=== PATIENT | female | born 1980 | race African-American/Black ===

== ENCOUNTER 2016-06-05 14:50 | Emergency (ER) | payer MEDICAID, OTHER ==
[2016-06-05 14:52] VITALS: BP 153/77; PULSE 88; RESP 12; TEMP 98; O2SAT 98
[2016-06-05] MEDS ORDERED: ONDANSETRON HCL 4 MG/2 ML VIAL IV PUSH ONE (16:45)
[2016-06-05] MEDS ORDERED: KETOROLAC TROMETHAMINE 30 MG/ML (IVP) VIAL IV PUSH ONE (16:45)
--- NOTE | 2016-06-05 16:58 | PD ---
HPI Chief Complaint: Abdominal Pain Time Seen by Provider: 16:54 Travel History International Travel<30 days: No Contact w/Intl Traveler<30days: No Traveled to known affect area: No History of Present Illness HPI Patient is a 36-year-old female presenting to emergency from for evaluation of left lower quadrant abdominal pain. She states the pain started 3 days ago, it' s intermittent, crampy in nature. She reports vomiting early this morning with a soft bowel movement following that. She has had no other nausea or vomiting. She further denies any fever, chills, shortness of breath, chest pain. Patient states that she was told she had an issue with her ovary by her primary doctor a few years ago, she was referred to a bariatric surgeon but never followed up. Patient's last menstrual cycle was on May 23. She further denies any vaginal discharge, recent sexual activity, or new sexual partners. PFSH Past Medical History Asthma: Yes Cancer: No Cardiovascular Problems: No Diabetes: No Diminished Hearing: No Endocrine: No Genitourinary: No Hepatitis: No Hiatal Hernia: No Immune Disorder: No Musculoskeletal: Yes (BROKEN RT HAND) Neurologic: No Psychiatric: No Reproductive: Yes ( IN MAY [birth year]) Respiratory: Yes (asthma) Thyroid Disease: No ?: Not LMP: 05/23/16 : 2 Para: 0 Miscarriage: 1 : 1 Ectopic : No Ovarian Cysts: No Past Surgical History AICD: No Section: Yes (x1) Gynecologic Surgery: Yes () Joint Replacement: No Pacemaker: No Social History Alcohol Use: Yes (occ) Tobacco Use: Yes (<ppd) Substance Use: No Allergies-Medications (Allergen,Severity, Reaction): Coded Allergies: No Known Allergies (Verified , 06/05/16) Reported Meds & Prescriptions Reported Meds & Active Scripts Active No Active Prescriptions or Reported Medications Review of Systems Except as stated in HPI: all other systems reviewed are Neg Gastrointestinal: Positive: Nausea, Vomiting, Abdominal Pain Physical Exam Narrative GENERAL: Well-developed, well-nourished, alert female. Resting comfortably in no acute distress. SKIN: Warm and dry. HEAD: Atraumatic. Normocephalic. EYES: Pupils equal and round. No scleral icterus. No injection or drainage. ENT: No nasal bleeding or discharge. Mucous membranes pink and moist. NECK: Trachea midline. No JVD. CARDIOVASCULAR: Regular rate and rhythm. No murmur appreciated. RESPIRATORY: No accessory muscle use. Clear to auscultation. Breath sounds equal bilaterally. GASTROINTESTINAL: Abdomen soft, no clubbing. No cyanosis. No edema. No rebound, no guarding. Mildly tender in left lower quadrant with deep palpation. Positive bowel sounds. NEUROLOGICAL: Awake and alert. No obvious cranial nerve deficits. Motor grossly within normal limits. Normal speech. PSYCHIATRIC: Appropriate mood and affect; insight and judgment normal. Data Data Last Documented VS Vital Signs Date Time Temp Pulse Resp B/P Pulse Ox O2 Delivery O2 Flow Rate FiO2 06/05/16 14:52 98.0 88 12 153/77 98 Room Air Orders Complete Blood Count With Diff (06/05/16 16:44) Basic Metabolic Panel (Bmp) (06/05/16 16:44) Urinalysis - C+S If Indicated (06/05/16 16:44) Ed Urine Pregnancytest Poc (06/05/16 16:44) Iv Access Insert/Monitor (06/05/16 16:45) Ketorolac Inj (Toradol Inj) (06/05/16 16:45) Ondansetron Inj (Zofran Inj) (06/05/16 16:45) Labs Laboratory Tests Test 06/05/16 06/05/16 17:30 17:35 Urine Color YELLOW Urine Turbidity HAZY Urine pH 6.5 Urine Specific [place] 1.029 Urine Protein TRACE mg/dL Urine Glucose (UA) NEG mg/dL Urine Ketones NEG mg/dL Urine Occult Blood NEG Urine Nitrite NEG Urine Bilirubin NEG Urine Urobilinogen 2.0 MG/DL Urine Leukocyte Esterase SMALL Urine WBC 1 /hpf Urine Squamous Epithelial 21 /hpf Cells Urine Mucus FEW /lpf Microscopic Urinalysis Comment CULT NOT INDICATED White Blood Count 10.4 TH/MM3 Red Blood Count 4.28 MIL/MM3 Hemoglobin 11.3 GM/DL Hematocrit 34.9 % Mean Corpuscular Volume 81.7 FL Mean Corpuscular Hemoglobin 26.5 PG Mean Corpuscular Hemoglobin 32.5 % Concent Red Cell Distribution Width 16.3 % Platelet Count 267 TH/MM3 Mean Platelet Volume 9.3 FL Neutrophils (%) (Auto) 50.8 % Lymphocytes (%) (Auto) 37.7 % Monocytes (%) (Auto) 5.8 % Eosinophils (%) (Auto) 5.3 % Basophils (%) (Auto) 0.4 % Neutrophils # (Auto) 5.3 TH/MM3 Lymphocytes # (Auto) 3.9 TH/MM3 Monocytes # (Auto) 0.6 TH/MM3 Eosinophils # (Auto) 0.6 TH/MM3 Basophils # (Auto) 0.0 TH/MM3 CBC Comment DIFF FINAL Differential Comment Sodium Level 139 MEQ/L Potassium Level 3.8 MEQ/L Chloride Level 106 MEQ/L Carbon Dioxide Level 25.9 MEQ/L Anion Gap 7 MEQ/L Blood Urea Nitrogen 10 MG/DL Creatinine 0.71 MG/DL Estimat Glomerular Filtration 113 ML/MIN Rate Random Glucose 84 MG/DL Calcium Level 8.6 MG/DL MDM Medical Decision Making Medical Screen Exam Complete: Yes Emergency Medical Condition: Yes Interpretation(s) Vital Signs Date Time Temp Pulse Resp B/P Pulse Ox O2 Delivery O2 Flow Rate FiO2 06/05/16 14:52 98.0 88 12 153/77 98 Room Air Differential Diagnosis Ovarian cyst versus diverticulitis versus muscle strain versus ovarian torsion versus other Narrative Course Patient is a 36-year-old female presenting to the emergency room for evaluation of left lower quadrant abdominal pain that started 3 days ago, it is intermittent, worse with walking. Abdominal exam was unimpressive. There is no rebound, no guarding. Patient requested remote control for the TV. Labs ordered and pending. Labs reviewed and are unremarkable. Urinalysis is negative of urinary tract infection. Urine is negative. Patient has had no further vomiting in the emergency department. She is encouraged follow-up with her primary care provider, additionally she was encouraged follow-up with gynecology as previously advised. Patient is encouraged to return to emergency department for any new or worsening symptoms. Patient verbalized understanding of instructions. Patient stable for discharge. Plan of care discussed with my attending physician who is in agreement. Diagnosis Primary Impression: Intermittent left lower quadrant abdominal pain Additional Impression: Nausea and vomiting Qualified Code: R11.2 - Non-intractable vomiting with nausea, unspecified vomiting type Referrals: [facility] Patient Instructions: Abdominal Pain (ED), Acute Nausea and Vomiting (ED), General Instructions, Ovarian Cyst (DC) Additional Instructions: Follow-up with gynecology at the [facility] Follow-up with your primary doctor Return to emergency department and medially for any new or worsening symptoms Take medications as directed Maintain adequate fluid intake Med/Other Pt SpecificInfo: Prescription(s) given Scripts Ondansetron Odt (Zofran Odt)4 Mg Tab4 Mg SL Q6HR PRN (Nausea/Vomiting) 5 Days Ref 0 Prov:Arianna Augustine 06/05/16 Disposition: 01 DISCHARGE HOME Condition: Stable Arianna Augustine Jun 05, 2016 16:58
[2016-06-05 17:15] VITALS: BP 145/72; PULSE 85; RESP 18; O2SAT 99
[2016-06-05 17:58] LABS: AUTOMATED NEUTROPHIL # 5.3 TH/MM3 (1.8-7.7); BASOPHIL % 0.4 % (0.0-2.0); EOSINOPHIL # 0.6 TH/MM3 (0-0.4); EOSINOPHIL % 5.3 % (0.0-4.0); HEMATOCRIT 34.9 % (35.0-46.0); HEMO FLAGS DIFF FINAL; LYMPH % 37.7 % (9.0-44.0); LYMPHOCYTE # 3.9 TH/MM3 (1.0-4.8); MEAN CELL VOLUME 81.7 FL (80.0-100.0); MEAN CORPUSCULAR HEMOGLOBIN 26.5 PG (27.0-34.0); MEAN CORPUSCULAR HGB CONC 32.5 % (32.0-36.0); MONO % 5.8 % (0.0-8.0); NEUT % 50.8 % (16.0-70.0); PLATELET COUNT 267 TH/MM3 (150-450); RED BLOOD COUNT 4.28 MIL/MM3 (4.00-5.30); RED CELL DISTRIBUTION WIDTH 16.3 % (11.6-17.2); WHITE BLOOD COUNT 10.4 TH/MM3 (4.0-11.0)
[2016-06-05 18:04] LABS: BLOOD, URINE NEG (NEG); COMMENT (UR) CULT NOT INDICATED; CULTURE IF INDICATED CULT NOT INDICATED; GLUCOSE,URINE NEG (NEG); KETONE, URINE NEG (NEG); MUCUS URINE FEW /lpf (OCC); NITRITE,URINE NEG (NEG); PH, URINE 6.5 (5.0-8.5); SQUAMOUS EPITHELIAL CELL URINE 21 /hpf (0-5); URINE COLOR YELLOW (YELLW/STRAW)
[2016-06-05 18:22] LABS: BICARBONATE 25.9 MEQ/L (21.0-32.0); POTASSIUM 3.8 MEQ/L (3.5-5.1)
[2016-06-05] MEDS ORDERED: ZOFR4TAB3 SL (18:25)
[2016-06-05 18:49] VITALS: BP 152/71
== END 2016-06-05 18:54 | disposition home or self-care (01) ==
LOC: NEPC 14:50
DX: R10.32 Left lower quadrant pain (principal); R11.2 Nausea with vomiting, unspecified
CPT/HCPCS: 80048; 81001; 84703; 85025; 96374; 96375; 99284; J1885; J2405

== ENCOUNTER 2017-04-02 16:52 | Emergency (ER) | payer MEDICAID ==
[~2017-04-02 16:52] MED LIST: ZOFR4TAB3 SL
[2017-04-02 16:55] VITALS: BP 143/84; PULSE 78; RESP 16; TEMP 98.1; O2SAT 99
--- NOTE | 2017-04-02 18:50 | PD ---
HPI Chief Complaint: Musculoskeletal Complaint Time Seen by Provider: 18:27 Travel History International Travel<30 days: No Contact w/Intl Traveler<30days: No Traveled to known affect area: No History of Present Illness HPI 37 YO F presents to the ED for evaluation of PFSH Past Medical History Asthma: Yes Cancer: No Cardiovascular Problems: No Diabetes: No Diminished Hearing: No Endocrine: No Genitourinary: No Hepatitis: No Hiatal Hernia: No Hypertension: Yes Immune Disorder: No Musculoskeletal: Yes (BROKEN RT HAND) Neurologic: No Psychiatric: No Reproductive: Yes ( IN MAY [birth year]) Respiratory: Yes (asthma) Thyroid Disease: No ?: Not LMP: 03/12/17 : 2 Para: 0 Miscarriage: 1 : 1 Ectopic : No Ovarian Cysts: No Past Surgical History AICD: No Section: Yes (x1) Gynecologic Surgery: Yes () Joint Replacement: No Pacemaker: No Other Surgery: Yes Social History Alcohol Use: Yes (occ) Tobacco Use: Yes Substance Use: No Allergies-Medications (Allergen,Severity, Reaction): Coded Allergies: No Known Allergies (Verified , 06/06/16) Reported Meds & Prescriptions Reported Meds & Active Scripts Active Zofran Odt (Ondansetron Odt) 4 Mg Tab 4 Mg SL Q6HR PRN 5 Days Data Data Last Documented VS Vital Signs Date Time Temp Pulse Resp B/P (MAP) Pulse Ox O2 Delivery O2 Flow Rate FiO2 04/02/17 16:55 98.1 78 16 143/84 (103) 99 Nemo Ahumada Apr 02, 2017 18:50
== END 2017-04-02 18:56 | disposition left against medical advice (07) ==
LOC: NEPK 16:52
DX: R20.0 Anesthesia of skin (principal); J45.909 Unspecified asthma, uncomplicated; I10 Essential (primary) hypertension; Z53.21 Procedure and treatment not carried out due to patient leaving prior to being seen by health care provider
CPT/HCPCS: 99281

== ENCOUNTER 2017-07-10 23:19 | Emergency (ER) | payer MEDICAID ==
[~2017-07-10] VITALS: Ht 165.1 cm; Wt 75.0 kg
[2017-07-11 00:06] VITALS: BP 143/90; PULSE 82; RESP 16; TEMP 98.4; O2SAT 100
[2017-07-11] MEDS ORDERED: SODIUM CHLORIDE 0.9% FLUSH 10 ML FLUSH IV FLUSH PRN (01:00)
--- NOTE | 2017-07-11 01:15 | PD ---
HPI . Abdominal pain Chief Complaint: Abdominal Pain Time Seen by Provider: 00:41 Travel History International Travel<30 days: No Contact w/Intl Traveler<30days: No Traveled to known affect area: No History of Present Illness HPI This patient presents with a chief complaint of abdominal pain. She describes left-sided abdominal pain for the last 2 days which she rates 10/10. She states that it is worse tonight. She denies any associated nausea or vomiting. She states that she had diarrhea yesterday but that it has now completely resolved. She denies any urinary tract or [employer] symptoms. There are no modifying factors. PFSH Past Medical History Asthma: Yes Cancer: No Cardiovascular Problems: No Diabetes: No Diminished Hearing: No Endocrine: No Gastrointestinal Disorders: No Genitourinary: No Hepatitis: No Hiatal Hernia: No Hypertension: Yes Immune Disorder: No Musculoskeletal: Yes (BROKEN RT HAND) Neurologic: No Psychiatric: No Reproductive: Yes ( IN [birth year]) Respiratory: Yes (asthma) Immunizations Current: Yes Thyroid Disease: No Tetanus Vaccination: > 5 Years Influenza Vaccination: No ?: Unknown LMP: 06/11/17 : 2 Para: 0 Miscarriage: 1 : 1 Ectopic : No Ovarian Cysts: No Past Surgical History AICD: No Section: Yes (x1) Gynecologic Surgery: Yes () Joint Replacement: No Pacemaker: No Other Surgery: Yes Social History Alcohol Use: Yes (occ) Tobacco Use: Yes Substance Use: No Allergies-Medications (Allergen,Severity, Reaction): Coded Allergies: No Known Allergies (Verified Adverse Reaction, Unknown, 07/11/17) Reported Meds & Prescriptions Reported Meds & Active Scripts Active Zofran Odt (Ondansetron Odt) 4 Mg Tab 4 Mg SL Q6HR PRN 5 Days Review of Systems Except as stated in HPI: all other systems reviewed are Neg General / Constitutional: No: Fever, Chills Gastrointestinal: Positive: Diarrhea (Diarrhea yesterday which has now completely resolved), Abdominal Pain, No: Nausea, Vomiting Genitourinary: No: Urgency, Frequency, Dysuria, Dyspareunia, Discharge, Vaginal Bleeding Physical Exam Narrative GENERAL: Awake and alert and in no acute distress. SKIN: warm/dry. HEAD: Normocephalic. Atraumatic. EYES: Pupils equal and round. No scleral icterus. No injection or drainage. ENT: No nasal bleeding or discharge. Mucous membranes pink and moist. NECK: Trachea midline. Full range of motion without pain.. CARDIOVASCULAR: Regular rate and rhythm. Heart sounds normal. RESPIRATORY: No accessory muscle use. Clear to auscultation. Breath sounds equal bilaterally. GASTROINTESTINAL: Abdomen soft. Diffuse tenderness with no guarding or rebound.. Bowel sounds present. Nondistended. MUSCULOSKELETAL: No obvious deformities. NEUROLOGICAL: Awake and alert. No obvious cranial nerve deficits. Motor grossly within normal limits. Normal speech. PSYCHIATRIC: Appropriate mood and affect; insight and judgment normal. Data Data Last Documented VS Vital Signs Date Time Temp Pulse Resp B/P (MAP) Pulse Ox O2 Delivery O2 Flow Rate FiO2 07/11/17 01:17 77 18 163/91 (115) 100 Room Air 07/11/17 00:06 98.4 Orders Orders Complete Blood Count With Diff (07/11/17 00:47) Comprehensive Metabolic Panel (07/11/17 00:47) Lipase (07/11/17 00:47) Urinalysis - C+S If Indicated (07/11/17 00:47) Iv Access Insert/Monitor (07/11/17 00:47) Ecg Monitoring (07/11/17 00:47) Oximetry (07/11/17 00:47) Sodium Chloride 0.9% Flush (Ns Flush) (07/11/17 01:00) Ed Urine Pregnancytest Poc (07/11/17 00:47) Labs Laboratory Tests Test 07/11/17 01:10 White Blood Count 9.8 TH/MM3 Red Blood Count 4.54 MIL/MM3 Hemoglobin 11.3 GM/DL Hematocrit 35.0 % Mean Corpuscular Volume 77.0 FL Mean Corpuscular Hemoglobin 24.8 PG Mean Corpuscular Hemoglobin Concent 32.2 % Red Cell Distribution Width 16.4 % Platelet Count 302 TH/MM3 Mean Platelet Volume 9.0 FL Neutrophils (%) (Auto) 48.1 % Lymphocytes (%) (Auto) 40.8 % Monocytes (%) (Auto) 6.6 % Eosinophils (%) (Auto) 4.2 % Basophils (%) (Auto) 0.3 % Neutrophils # (Auto) 4.7 TH/MM3 Lymphocytes # (Auto) 4.0 TH/MM3 Monocytes # (Auto) 0.6 TH/MM3 Eosinophils # (Auto) 0.4 TH/MM3 Basophils # (Auto) 0.0 TH/MM3 CBC Comment DIFF FINAL Differential Comment Urine Color YELLOW Urine Turbidity HAZY Urine pH 7.0 Urine Specific [place] 1.024 Urine Protein NEG mg/dL Urine Glucose (UA) NEG mg/dL Urine Ketones NEG mg/dL Urine Occult Blood NEG Urine Nitrite NEG Urine Bilirubin NEG Urine Urobilinogen LESS THAN 2.0 MG/DL Urine Leukocyte Esterase NEG Urine RBC LESS THAN 1 /hpf Urine WBC 1 /hpf Urine Squamous Epithelial Cells 8 /hpf Urine Mucus FEW /lpf Microscopic Urinalysis Comment CULT NOT INDICATED Blood Urea Nitrogen 9 MG/DL Creatinine 0.72 MG/DL Random Glucose 81 MG/DL Total Protein 8.2 GM/DL Albumin 4.0 GM/DL Calcium Level 8.6 MG/DL Alkaline Phosphatase 74 U/L Aspartate Amino Transf (AST/SGOT) 14 U/L Alanine Aminotransferase (ALT/SGPT) 17 U/L Total Bilirubin 0.2 MG/DL Sodium Level 142 MEQ/L Potassium Level 3.6 MEQ/L Chloride Level 109 MEQ/L Carbon Dioxide Level 27.1 MEQ/L Anion Gap 6 MEQ/L Estimat Glomerular Filtration Rate 111 ML/MIN Lipase 275 U/L [facility] Medical Decision Making Medical Screen Exam Complete: Yes Emergency Medical Condition: Yes Medical Record Reviewed: Yes (This patient has been seen here before with recurrent, intermittent left lower quadrant abdominal pain.) Differential Diagnosis Differential diagnosis of abdominal pain includes but is not limited to gastritis, pancreatitis, hepatitis, gastroenteritis, constipation, urinary retention, peptic ulcer disease, diverticulitis or appendicitis Narrative Course This patient presents with abdominal pain. She has some diffuse abdominal tenderness but no guarding or rebound. Her vital signs are normal. Her only associated symptom is diarrhea yesterday which is now completely resolved. CBC & BMP Diagram 07/11/17 01:10 Total Protein 8.2, Albumin 4.0, Calcium Level 8.6, Alkaline Phosphatase 74, Aspartate Amino Transf (AST/SGOT) 14 L, Alanine Aminotransferase (ALT/SGPT) 17, Total Bilirubin 0.2 UA is neg for infection. The history, exam, diagnostic testing, and current condition do not suggest any significant pathology to warrant further testing, continued ED treatment, admission, or surgical evaluation at this point. No EMC was found. The patient 's condition is stable and appropriate for discharge. Diagnosis Primary Impression: Intermittent left lower quadrant abdominal pain Patient Instructions: Abdominal Pain (ED), General Instructions Additional Instructions: See your doctor if symptoms continue Disposition: 01 DISCHARGE HOME Condition: Stable Trinity Meza MD Jul 11, 2017 01:15
[2017-07-11 01:16] VITALS: RESP 18; O2SAT 99
[2017-07-11 01:17] VITALS: BP 163/91; PULSE 77; RESP 18; O2SAT 100
[2017-07-11 01:37] LABS: AUTOMATED NEUTROPHIL # 4.7 TH/MM3 (1.8-7.7); BASOPHIL % 0.3 % (0.0-2.0); EOSINOPHIL # 0.4 TH/MM3 (0-0.4); EOSINOPHIL % 4.2 % (0.0-4.0); HEMOGLOBIN 11.3 GM/DL (11.6-15.3); LYMPH % 40.8 % (9.0-44.0); MEAN CORPUSCULAR HEMOGLOBIN 24.8 PG (27.0-34.0); MEAN CORPUSCULAR HGB CONC 32.2 % (32.0-36.0); MONO % 6.6 % (0.0-8.0); MONOCYTE # 0.6 TH/MM3 (0-0.9); NEUT % 48.1 % (16.0-70.0); PLATELET COUNT 302 TH/MM3 (150-450); RED BLOOD COUNT 4.54 MIL/MM3 (4.00-5.30); RED CELL DISTRIBUTION WIDTH 16.4 % (11.6-17.2); WHITE BLOOD COUNT 9.8 TH/MM3 (4.0-11.0)
[2017-07-11 01:39] LABS: BILIRUBIN, URINE NEG (NEG); BLOOD, URINE NEG (NEG); GLUCOSE,URINE NEG (NEG); KETONE, URINE NEG (NEG); MUCUS URINE FEW /lpf (OCC); NITRITE,URINE NEG (NEG); SQUAMOUS EPITHELIAL CELL URINE 8 /hpf (0-5); URINE COLOR YELLOW (YELLW/STRAW); URINE LEUKOCYTE ESTERASE NEG (NEG)
[2017-07-11 01:52] LABS: ALT (GPT) 17 U/L (10-53); AST (GOT) 14 U/L (15-37); BICARBONATE 27.1 MEQ/L (21.0-32.0); BLOOD UREA NITROGEN 9 MG/DL (7-18); CALCIUM 8.6 MG/DL (8.5-10.1); CHLORIDE 109 MEQ/L (98-107); CREATININE 0.72 MG/DL (0.50-1.00); GLOMERULAR FILTRATION RATE 111 ML/MIN (>89); GLUCOSE,RANDOM 81 MG/DL (74-106); SODIUM (NA) 142 MEQ/L (136-145)
[2017-07-11 01:54] LABS: ALKALINE PHOSPHATASE 74 U/L (45-117); TOTAL BILIRUBIN ADULT 0.2 MG/DL (0.2-1.0); TOTAL PROTEIN 8.2 GM/DL (6.4-8.2)
== END 2017-07-11 02:44 | disposition home or self-care (01) ==
LOC: NEPC 23:19
DX: R10.32 Left lower quadrant pain (principal); I10 Essential (primary) hypertension; J45.909 Unspecified asthma, uncomplicated; Z72.0 Tobacco use
CPT/HCPCS: 80053; 81001; 83690; 84703; 85025; 99283